=== PATIENT | male | born 1950 | race Caucasian/White ===

== ENCOUNTER 2018-12-08 18:19 | Emergency (ER) | payer OTHER ==
[~2018-12-08] VITALS: Ht 170.2 cm; Wt 78.0 kg
[2018-12-08 18:32] VITALS: Ht 170.2 cm; Wt 78.0 kg
[2018-12-08 21:17] VITALS: BP 154/97
== END 2018-12-08 21:17 | disposition home or self-care (01) ==
LOC: ED 18:19
DX: R10.32 Left lower quadrant pain (principal)

== ENCOUNTER 2019-03-15 21:07 | Emergency (ER) | payer OTHER ==
[~2019-03-15] VITALS: Ht 170.2 cm; Wt 77.6 kg
[2019-03-15 21:12] VITALS: Ht 170.2 cm; Wt 77.6 kg
[2019-03-15 23:00] LABS: CALCIUM 8.4 mg/dL (8.5-10.1); CARBON DIOXIDE 30.4 mmol/L (21-32); CHLORIDE SERUM 105 mmol/L (98-107); GFR1 > 60 mL/min; GLUCOSE SERUM 125 mg/dL (74-106); POTASSIUM SERUM 3.7 mmol/L (3.5-5.1); SODIUM SERUM 142 mmol/L (136-145)
[2019-03-15 23:01] LABS: BASOPHIL % 0.3 % (0-2); PLATELET COUNT 247 x10^3mcL (130-400); RED CELL DISTRIBUTION WIDTH 14.1 % (11.5-14.5)
[2019-03-15 23:05] LABS: ALKALINE PHOSPHATASE 62 U/L (46-116); ALT/SGPT 39 U/L (16-63); AST/SGOT 23 U/L (15-37); BILIRUBIN TOTAL 0.4 mg/dL (0.20-1.00); LIPASE 98 IU/L (73-393)
[2019-03-15 23:07] LABS: ALBUMIN 3.3 g/dL (3.4-5.0)
[2019-03-15 23:51] LABS: UA SPECIFIC GRAVITY 1.015 (1.005-1.035); microscopic required? YES; urine erythrocyte NEGATIVE (NEGATIVE)
[2019-03-16 02:26] VITALS: BP 137/89
== END 2019-03-16 02:26 | disposition short-term general hospital (02) ==
LOC: ED 21:07
PROVIDERS: Emergency Medicine
DX: K56.609 Unspecified intestinal obstruction, unspecified as to partial versus complete obstruction (principal); N39.0 Urinary tract infection, site not specified
CPT/HCPCS: J1885; J2405; J2543; J3010; J7030; Q0092